=== PATIENT | male | born 1995 | race Asian ===

== ENCOUNTER 2018-11-08 09:33 | Emergency (ER) | payer BC ==
[~2018-11-08] VITALS: Ht 170.2 cm; Wt 70.5 kg
[~2018-11-08 09:33] MED LIST: NO HOME MEDICATIONS; PREDNISONE20 MG PO
[2018-11-08 09:35] VITALS: TEMP 98.5
[2018-11-08 10:27] LABS: BASO % 0.3 % (0.0-2.0); EOS # 0.1 (0.0-0.7); EOS % 0.5 % (0-4.0); HEMATOCRIT 49.3 % (42.0-52.0); HEMOGLOBIN 16.8 g/dl (13.5-18.0); LYMPH % 19.7 % (20.0-51.0); MEAN CELL VOLUME 80 fl (80.0-100.0); MEAN CORPUSCULAR HEMOGLOBIN 27 pg (27.0-31.0); MEAN CORPUSCULAR HGB CONC 34 g/dl (33.0-37.0); MEAN PLATELET VOLUME 9.3 fl (7.4-10.4); MONO # 0.9 (0.1-0.6); MONO % 9.1 % (1.7-9.3); PLATELET COUNT 222 K/mm3 (130-400); RED BLOOD COUNT 6.15 M/mm3 (4.20-5.60); REDCELL DISTRIBUTION WIDTH-CV 12.6 % (11.5-14.5)
[2018-11-08 10:38] LABS: ALBUMIN 4.7 gm/dL (3.5-5.0); BILIRUBIN,TOTAL 1.1 mg/dL (0.0-1.0); CREATININE, serum 0.91 mg/dL (0.66-1.25); POTASSIUM 3.9 mmol/L (3.4-5.0); TOTAL PROTEIN 7.9 gm/dL (6.4-8.2)
[2018-11-08] MEDS ORDERED: LEXAPRO 10MG10 MG PO (11:01)
[2018-11-08 12:17] VITALS: BP 139/89; PULSE 88
== END 2018-11-08 12:17 | disposition home or self-care (01) ==
LOC: COL.ER 09:33
PROVIDERS: Physician Assistant
DX: T43.641A Poisoning by ecstasy, accidental (unintentional), initial encounter (principal); F41.9 Anxiety disorder, unspecified; F17.210 Nicotine dependence, cigarettes, uncomplicated; F12.90 Cannabis use, unspecified, uncomplicated
CPT/HCPCS: J2060; J7030

== ENCOUNTER 2019-03-03 10:28 | Emergency (ER) | payer BC ==
[~2019-03-03] VITALS: Ht 167.6 cm; Wt 72.7 kg
[~2019-03-03 10:28] MED LIST changes: +LEXAPRO 10MG10 MG PO
[2019-03-03 10:30] VITALS: BP 137/75; TEMP 98.6
[2019-03-03] MEDS ORDERED: ABILIFY2 MG PO (10:42)
[2019-03-03 11:01] LABS: BASO % 0.2 % (0.0-2.0); EOS # 0.1 (0.0-0.7); EOS % 0.9 % (0-4.0); GRAN # 6.9 (1.4-6.5); GRAN % 75.4 % (42.2-75.2); HEMOGLOBIN 16.5 g/dl (13.5-18.0); LYMPH # 1.6 (1.2-3.4); LYMPH % 17.2 % (20.0-51.0); MEAN CELL VOLUME 81 fl (80.0-100.0); MEAN CORPUSCULAR HEMOGLOBIN 27 pg (27.0-31.0); MEAN CORPUSCULAR HGB CONC 34 g/dl (33.0-37.0); MEAN PLATELET VOLUME 9.2 fl (7.4-10.4); MONO # 0.5 (0.1-0.6); MONO % 5.9 % (1.7-9.3); PLATELET COUNT 262 K/mm3 (130-400); RED BLOOD COUNT 6.05 M/mm3 (4.20-5.60)
[2019-03-03 11:13] LABS: ALANINE AMINOTRANSFERASE 20 U/L (21-72); ALBUMIN 4.3 gm/dL (3.5-5.0); ALKALINE PHOSPHATASE 109 U/L (50-136); ANION GAP 10 mmol/L (7-16); AST,SGOT 37 U/L (15-37); BILIRUBIN,TOTAL 0.6 mg/dL (0.0-1.0); BLOOD UREA NITROGEN 17 mg/dL (9-20); CALCIUM 9.6 mg/dL (8.4-10.2); CARBON DIOXIDE 28 mmol/L (22-30); CHLORIDE 105 mmol/L (98-107); CREATININE, serum 1.03 (0.66-1.25); GLUCOSE 97 mg/dL (74-106); POTASSIUM 3.6 mmol/L (3.4-5.0); SODIUM 142 mmol/L (137-145); TOTAL PROTEIN 7.9 gm/dL (6.4-8.2)
[2019-03-03 11:21] LABS: ACETAMINOPHEN < 10 ug/mL (10-30)
[2019-03-03 11:22] LABS: ALCOHOL(ethanol),MEDICAL < 10 mg/dL; SALICYLATE < 1.0 mg/dL
[2019-03-03 11:25] LABS: TRICYCLIC ANTIDEPRESS URINE NEGATIVE
[2019-03-03 11:51] VITALS: PULSE 86
== END 2019-03-03 11:52 | disposition home or self-care (01) ==
LOC: COL.ER 10:28
PROVIDERS: Physician Assistant
DX: F32.9 Major depressive disorder, single episode, unspecified (principal)

== ENCOUNTER 2024-07-19 09:22 | Emergency (ER) | payer BC ==
[~2024-07-19] VITALS: Ht 170.2 cm; Wt 65.9 kg
[~2024-07-19 09:22] MED LIST changes: +ABILIFY2 MG PO
[2024-07-19 09:51] LABS: COLLECTION METHOD CLEAN CATCH
[2024-07-19 09:55] LABS: URINE APPEARANCE CLEAR (CLEAR/HAZY); URINE BLOOD NEGATIVE (NEGATIVE); URINE COLOR YELLOW (YELLOW); URINE GLUCOSE NEGATIVE (NEGATIVE); URINE KETONE NEGATIVE (NEGATIVE); URINE NITRATE NEGATIVE (NEGATIVE); URINE PROTEIN(semi-quant) NEGATIVE (NEGATIVE)
[2024-07-19] MEDS ORDERED: OLANZapine 10 MG Orally-Disinteg TAB PO ONE (10:00)
[2024-07-19 10:13] LABS: BASO % 0.5 % (0.0-2.0); EOS % 0.2 % (0.0-4.0); GRAN # 6.1 K/mm3 (1.4-6.5); GRAN % 76.7 % (42.2-75.2); HEMATOCRIT 51.4 % (42.0-52.0); LYMPH # 1.3 K/mm3 (1.2-3.4); LYMPH % 16.4 % (20.0-51.0); MEAN CELL VOLUME 81 fl (80.0-100.0); MEAN CORPUSCULAR HEMOGLOBIN 28 pg (27-31); MEAN CORPUSCULAR HGB CONC 35 g/dl (33.0-37.0); MEAN PLATELET VOLUME 9.4 fl (7.4-10.4); MONO # 0.5 K/mm3 (0.1-0.6); PLATELET COUNT 237 K/mm3 (130-400); RED BLOOD COUNT 6.38 M/mm3 (4.20-5.60); REDCELL DISTRIBUTION WIDTH-CV 11.8 % (11.5-14.5)
[2024-07-19 10:20] LABS: TRICYCLIC ANTIDEPRESS URINE NEGATIVE (NEGATIVE)
[2024-07-19 10:33] LABS: ALANINE AMINOTRANSFERASE 66 U/L (0-55); ALBUMIN 4.6 g/dL (3.5-5.0); ALKALINE PHOSPHATASE 109 U/L (40-150); ANION GAP 14 mmol/L (7-16); AST,SGOT 26 U/L (5-34); BILIRUBIN,TOTAL 1.1 mg/dL (0.2-1.2); BLOOD UREA NITROGEN 10 mg/dL (9-21); CALCIUM 10.2 mg/dL (8.4-10.2); CHLORIDE 106 mEq/L (98-107); CREATININE, serum 1.13 mg/dL (0.72-1.25); GLUCOSE 142 mg/dL (70-99); POTASSIUM 3.6 mEq/L (3.5-4.5); SODIUM 142 mEq/L (136-145); TOTAL PROTEIN 7.9 g/dl (6.2-8.1)
[2024-07-19 10:37] LABS: ALCOHOL(ethanol),MEDICAL < 10 mg/dL (0-10); SALICYLATE < 5.0 mg/dL (15.0-30.0)
[2024-07-19] MEDS ORDERED: LORazepam 0.5 MG TAB PO ONE ×2 (12:00→18:45)
[2024-07-19] MEDS ORDERED: LYBALVI 15-101 EACH PO (15:42)
[2024-07-19] MEDS ORDERED: CRESTOR 10MG10 MG PO (15:43)
[2024-07-19] MEDS ORDERED: ZYPREXA 5MG5 MG PO (15:44)
[2024-07-19] MEDS ORDERED: OLANZapine 5 MG TAB PO ONE ×2 (23:30)
[2024-07-20] MEDS ORDERED: LORazepam 1 MG TAB PO ONE (08:30)
[2024-07-20] MEDS ORDERED: OLANZapine 10 MG Orally-Disinteg TAB PO ONE (15:30)
[2024-07-20] MEDS ORDERED: OLANZapine 5 MG TAB PO ONE (20:15)
[2024-07-21 11:39] VITALS: TEMP 98
[2024-07-21] MEDS ORDERED: LORazepam 0.5 MG TAB PO ONE (14:30)
[2024-07-21] MEDS ORDERED: OLANZapine 5 MG TAB PO ONE (14:30)
[2024-07-21 14:47] VITALS: BP 152/95; PULSE 101
== END 2024-07-21 14:47 ==
LOC: COL.ER 09:22
PROVIDERS: Family Medicine
DX: F41.9 Anxiety disorder, unspecified (principal); Z86.59 Personal history of other mental and behavioral disorders